=== PATIENT | female | born 1955 | race Caucasian/White ===

== ENCOUNTER 2023-11-07 14:10 | Emergency (ER) | payer MEDICARE, SELFPAY ==
--- NOTE | ~2023-11-07 | XR_ITS ---
EXAMINATION: XR KNEE, LEFT CLINICAL INFORMATION: Pain in left knee following fall COMPARISON: None available. TECHNIQUE: Four views of the left knee. FINDINGS: There is no fracture seen. There is no joint effusion. There is narrowing cough medial compartment of left knee joint with varus deformity of the knee. There is chondrocalcinosis in the medial and lateral aspect of the knee consistent with CPPD arthropathy. Vascular calcifications present. XR/XR knee LT 4V IMPRESSION: No fracture seen. Osteoarthritis and CPPD arthropathy
--- NOTE | ~2023-11-07 | XR_ITS ---
EXAMINATION: XR LUMBOSACRAL SPINE CLINICAL INFORMATION: All midline tenderness COMPARISON: CT scan the abdomen and pelvis November 2017 TECHNIQUE: Three views of the lumbosacral spine. FINDINGS: There are postoperative changes related to L5-S1 lumbar fusion unchanged. Additional mild to moderate multilevel spondylosis manifested by endplate osteophytes and disc space narrowing involving multiple levels including the thoracal lumbar junction No fracture or bone lesion. Arterial calcification of the abdominal aorta. Surgical clips noted in the right upper quadrant. Partially visualized pelvis including sacroiliac joints unremarkable. XR/XR lumbar spine 2-3V IMPRESSION: Lumbar fusion unchanged. No acute abnormality. There is multilevel spondylosis of the remaining lumbar sacral spine unchanged compared to prior CT in 2018 allowing for differences of imaging modalities
--- NOTE | ~2023-11-07 | XR_ITS ---
EXAMINATION: XR KNEE, RIGHT CLINICAL INFORMATION: Fall, abrasions on the knees COMPARISON: None available. TECHNIQUE: Four views of the right knee. FINDINGS: No fracture or joint effusion. Alignment is anatomic. Mild tricompartment joint space narrowing and chondrocalcinosis. Extensive atherosclerotic calcification. XR/XR knee RT 4V IMPRESSION: Mild degenerative disease of the right knee.
[2023-11-07 14:19] VITALS: BP 139/56; PULSE 77; RESP 20; TEMP 36.9; O2SAT 98; BMI 31.6
--- NOTE | 2023-11-07 14:37 | ED_ITS ---
HPI - General Adult General Chief complaint: Fall Stated complaint: Fall Time Seen by Provider: 11/07/23 14:36 Source: patient Mode of arrival: ambulatory Limitations: no limitations History of Present Illness ED Provider: Christiano [facility] narrative: Patient is a 68-year-old female with history of arthritis presenting to the ED with complaint of bilateral knee pain and skin tears as well as skin tears to bilateral elbows and lower back pain after a fall earlier today. She states that she was shopping in [place] and thinks they may have recently cleaned the floors as they were very shiny. She states that she slipped on the floor, causing her to fall onto her hands and knees. She denies head strike or loss consciousness. She is not anticoagulated. She denies headache or vision knox es. Denies neck or back pain. Denies hand pain. Denies saddle anesthesia or bowel or bladder incontinence. MD complaint: Bilateral knee pain, lower back pain Onset (ago): hour(s) Location: back and lower extremity Severity: moderate Quality: aching Pain Consistency: constant Relieving factors: rest Exacerbating factors: movement Associated symptoms: denies other symptoms Treatments prior to arrival: other (Bandages) Related Data Allergies Allergy/AdvReac Type Severity Reaction Status Date / Time Penicillins Allergy Rash Verified 11/07/23 14:23 Sulfa (Sulfonamide Allergy Rash Verified 11/07/23 14:23 Antibiotics) Review of Systems 2 Review of Systems: As per HPI. Yes all other systems are reviewed and are negative Constitutional: Constitutional: Reports as per HPI [facility] Social History Social History Advance Directives: No Advance Directives Information Provided: No Physical Exam ED Vital Signs: Vital Signs - 24 hr 11/07/23 14:19 11/07/23 14:40 Temperature 98.4 F 97.5 F Pulse Rate 77 67 Respiratory Rate 20 17 Blood Pressure 139/56 L 158/62 H Pulse Oximetry 98 98 Oxygen Delivery Method Room Air Room Air BMI result Body Mass Index 31.6 Vital signs have been reviewed and appear to be correct. Blood pressure normal. Heart rate normal. Respiratory rate normal. Temperature normal. Oxygen saturation normal. Const General: cooperative, healthy appearing and no acute distress Orientation/consciousness: oriented to person, oriented to place, oriented to time and patient oriented x3 Limitations: no limitations HENMT Head: Yes normocephalic and Yes atraumatic Ears: external ears normal General nose exam: Normal external nose present Face and sinus: Yes face symmetric Mouth: oropharynx normal and moist mucous membranes Throat: Yes uvula midline Eyes Pupils: Equal, round and reactive pupils present Neck Neck: Yes normal visual inspection and Yes supple Resp Effort & Inspection: normal respiratory effort and able to speak in complete sentences Auscultation: clear to auscultation bilaterally Cardio Rate: regular rate Rhythm: regular rhythm Heart sounds: S1 normal heart sound present and S2 normal heart sound present GI Palpation (GI): Soft to palpation and nontender Auscultation: normoactive bowel sounds General: Yes no CVA tenderness Back/Spine/Pelvis Back: no CVA tenderness Cervical Spine: normal cervical lordosis, cervical ROM normal, No Cervical spine tenderness and No step off deformity Thoracic/Lumbar Spine: thoracic and lumbar spine normal to inspection, thoraco- lumbar ROM normal, pain with thoraco-lumbar ROM, No thoracic spinal tenderness and lumbar spinal tenderness at L4 and at L5 Pelvis: no pain with anterior-posterior compression and no pain with lateral compression Skin General skin exam: elasticity normal and turgor normal Neuro General: oriented to person, oriented to place, oriented to time, patient oriented x3, moves all extremities, no focal motor deficits and CN's II-XI intact bilaterally Cranial nerves: Yes Equal, round and reactive pupils present Cognition (Neuro): normal cognition Extrem General: Yes full ROM, Yes no pedal edema and Yes no calf tenderness Right upper extremity: elbow/forearm (minor (<1cm) skin tear to proximal forearm) Details: normal ROM and distal pulses intact Left upper extremity: elbow/forearm (minor (<1cm) skin tear to proximal forearm) Details: normal ROM and distal pulses intact Right lower extremity: knee Details: tenderness Location: of the patella, normal ROM and laceration (avulsion/skin tear x 2) knee anterior Left lower extremity: knee Details: tenderness Location: of the patella, normal ROM and laceration (avulsion/skin tear x 2) knee anterior Psych Mental Status: mental status grossly normal Affect: normal affect Thought process: Normal thought process present Medications Administered Discontinued Medications Generic Name Dose Route Start Last Admin Trade Name Freq PRN Reason Stop Dose Admin Acetaminophen 650 mg 11/07/23 15:34 11/07/23 16:04 Acetaminophen 325 Mg Tablet PO 11/07/23 15:35 650 mg ONCE ONE Administration Bacitracin 2 appl 11/07/23 15:36 11/07/23 16:05 Bacitracin Oint 0.9 Gm Packet TOPICAL 11/07/23 15:37 2 appl ONCE ONE Administration Protocol Diphtheria/Tetanus/Acell Pertussis 0.5 ml 11/07/23 15:35 11/07/23 16:03 Diphth,Pertus(Acell),Tet Adult 0.5 Ml Syringe IM 11/07/23 15:36 0.5 ml .ONCE ONE Administration Medical Decision Making Medical Decision Making [facility] Narrative: Patient is a 68-year-old female with history of arthritis presenting to the ED with complaint of bilateral knee pain and skin tears as well as skin tears to bilateral elbows and lower back pain after a fall earlier today. On exam patient is awake, A+Ox3, VS WNL, afebrile, normal neurological exam without fo aris deficits, physical exam findings as above. Given reported symptoms and physical exam findings, initial differential includes bilatera knee avulsions/contusions versus fractures, lumbar vertebral fracture versus muscle strain. X-ray bilateral knees and lumbar spine notable for no acute fractures. My interpretation is in agreement with the radiologist's interpretation. Wounds thoroughly cleansed in the emergency department and new dressings applied. Tdap updated. Results discussed with patient and all questions answered. Advised patient to change dressings daily and assess once for signs of infection and return if these occur. Return precautions discussed at bedside. Instructed patient to follow-up with primary care provider. Patient verbalized understanding of and agreement with plan. Differential Diagnosis Differential Diagnoses: The differential diagnosis associated with the presentation includes As per MDM. Admission/Observation Consideration of admission/observation: Escalation of care including admission/observation considered Patient would have been admitted to the hospital had their work up had any findings where hospital admission was appropriate and their clinical presentation warranted hospital admission. Independent Interpretation I performed an independent interpretation of an: Plain X-Ray Interpretation: X-ray bilateral knees and lumbar spine notable for no acute fractures. Radiology Impression Discussion of test interpretation with radiology: I have reviewed the radiologist's reading. Radiologist Impression: XR/XR lumbar spine 2-3V IMPRESSION: Lumbar fusion unchanged. No acute abnormality. There is multilevel spondylosis of the remaining lumbar sacral spine unchanged compared to prior CT in 2018 allowing for differences of imaging modalities XR/XR knee RT 4V IMPRESSION: Mild degenerative disease of the right knee. XR/XR knee LT 4V IMPRESSION: No fracture seen. Osteoarthritis and CPPD arthropathy External Record Review External record reviewed: Inpatient record, Office record and Outpatient record Discharge Plan Discharge Clinical Impression: Contusion of knee, left, Contusion of knee, right, Noninfected skin tear of leg, Lumbar strain Patient Disposition: Home, Self-Care Instructions: Laceration (DC), Low Back Strain (ED), Contusion in Adults (ED) Additional Instructions: You were evaluated in the emergency department today for injuries to your knees and lower back after a fall. Your x-rays did not show evidence of fractures to your knees or back. Your wounds were cleaned in the emergency department and your tetanus was updated. Keep the dressings in place for the next 24 hours. After that, you should change the dressings daily and assess the wounds for signs of infection. Please follow-up with your primary care provider. Return to the emergency department with new redness, swelling, thick yellow drainage, worsening pain, fever or any other concerning symptoms. Print Language: Kiswahili
[2023-11-07 14:40] VITALS: BP 158/62; PULSE 67; RESP 17; TEMP 36.4; O2SAT 98
[2023-11-07] MEDS: Diphth,Pertus(ACell),Tet Adult 0.5 ML SYRINGE IM (16:03)
[2023-11-07] MEDS: Acetaminophen 325 MG TABLET 650 MG PO (16:04)
[2023-11-07] MEDS: Bacitracin Oint 0.9 GM PACKET 2 APPL TOPICAL (16:05)
[2023-11-07 17:45] VITALS: BP 158/62; PULSE 67; RESP 17; TEMP 36.4; O2SAT 98
== END 2023-11-07 17:46 | disposition home or self-care (01) ==
PROVIDERS: Emergency Provider Emergency Medicine; PCP Internal Medicine
DX: S80.01XA Contusion of right knee, initial encounter (principal); S81.812A Laceration without foreign body, left lower leg, initial encounter; S81.811A Laceration without foreign body, right lower leg, initial encounter; M25.562 Pain in left knee; M25.561 Pain in right knee; M54.50 Low back pain, unspecified; M25.522 Pain in left elbow; M25.521 Pain in right elbow; X58.XXXA Exposure to other specified factors, initial encounter; Y93.9 Activity, unspecified; Y92.9 Unspecified place or not applicable; Y99.8 Other external cause status; Z23 Encounter for immunization
CPT/HCPCS: 72100; 73564; 90471; 90715; 96372; 99283; 99284

== ENCOUNTER → 2023-12-29 11:20 | Outpatient (BNV) | payer MEDICARE, SELFPAY | PROVIDERS: PCP Internal Medicine; Referring Provider Physician Assistant Medical; Visit Provider Internal Medicine | DX: D69.2 Other nonthrombocytopenic purpura (principal) | CPT/HCPCS: 99204; G2211 ==